=== PATIENT | male | born 1955 | race Caucasian/White ===

== ENCOUNTER 2016-07-08 16:36 | Emergency (ER) | payer SELFPAY ==
[2016-07-08] MEDS ORDERED: NS 500 ML IV ONE (17:18)
--- NOTE | 2016-07-08 17:18 | EDPHY ---
General Narrative: CHIEF COMPLAINT: nausea and shortness of breath HISTORY OF PRESENT ILLNESS: patient reports 3 episodes of nausea and shortness of breath that started last Friday, 9 days ago. First episode was after drinking heavily Friday night 9 days ago. He said he just felt short of breath and nauseated. There were mild symptoms that improved and resolved spontaneously after not drinking the following day. No chest pain at that time. The symptoms returned again yesterday and this morning. No chest pain during these either. There were brief, mild in severity and spontaneously resolved. Symptoms this morning lasted longer than the previous 2, prompting him to come to the emergency department. He has had no fever. No body aches. No headaches. No chills. No vomiting. No abdominal pain. No urinary complaints. No predictable modifying factors or associated complaints. REVIEW OF SYSTEMS: Ten systems reviewed and are negative unless otherwise noted in the HPI PERTINENT MEDICAL HISTORY: Noncontributory EXAMINATION General Appearance: Alert, no distress Head: normocephalic, atraumatic Eyes: Pupils equal and round, no conjunctival pallor or injection ENT, Mouth: Mucous membranes moist. Uvula midline. No erythema or edema. Neck: Normal inspection, supple, non-tender . No nuchal rigidity or meningismus. Respiratory: Lungs are clear to auscultation . No wheezing, rhonchi or crackles. No consolidation or diminishment. Cardiovascular: Regular rate and rhythm . No murmur. Pulses intact symmetrically the radial DP 2+. Gastrointestinal: Abdomen is soft and nontender . No tympany. No rigidity. Nonacute abdomen. Back: non-tender, no bony abnormalities Neurological: A&O, nonfocal, normal gait . No tremor. Strength is symmetric in all limbs. Skin: Warm and dry, no rash Extremities: Nontender, no pedal edema Psychiatric: Mood and affect normal DIFFERENTIAL DIAGNOSES: Including but not limited to alcohol intoxication, alcohol abuse, pancreatitis nausea and vomiting, dehydration, atrial fibrillation, alcohol intolerance MDM: 5:15 p.m. several bouts of nausea and shortness of breath. These have happened every time he drinks over the past 10 days. No chest pain of any kind. No shortness of breath at this time. Vital signs are within normal limits. Of her laboratory studies an EKG. This appears to be benign and directly related to the alcohol. His last intake was last night. He denies alcohol this time or alcohol 6:45 p.m. laboratory studies are all within normal limits. He has no symptoms at this time. He is not tremulous. He is not febrile. He has no signs delirium tremens. I do feel this is likely related to his alcohol use. I feel that he may not be conveyed to me how much he actually drinks. We discussed short trial of Librium of the next few days to see if this helps his symptoms. I discussed the need to completely refrain from alcohol while trying this. Voices understanding of this. I do feel he is capable of attempting this. He is to follow up with the previous position he saw or [facility]. Return to ER for worsening symptoms or any chest pain of any kind. He is comfortable this plan. I have answered all of his questions. He is discharged home in stable condition. SUPERVISION: This patient was independently evaluated without the aide of supervising physician. - History Smoking Status: Never smoked - Objective Vital Signs: Initial Vital Signs Temperature (C) 98.2 F 07/08/16 16:39 Heart Rate 81 07/08/16 16:39 Respiratory Rate 16 07/08/16 16:39 Blood Pressure 136/76 H 07/08/16 16:39 O2 Sat (%) 94 07/08/16 16:39 O2 Delivery Mode Room Air Allergies/Adverse Reactions: penicillin V potassium [From Pen-Vee K] Allergy (Intermediate, Verified 16:38) Rash Penicillins Allergy (Verified 07/08/16 16:38) Home Medications: Medication Instructions Recorded Miscellaneous Medical Supply [NO 01/12/12 HOME MEDS] chlordiazePOXIDE 25MG PREPK#6 1 btl TAKEHOME AD PRN #1 btl 07/08/16 [Librium 25 mg Prepack#6] Laboratory Results: Laboratory Results 07/08/16 17:49 07/08/16 17:49 07/08/16 07/08/16 07/08/16 17:49 17:49 17:49 WBC RBC Hgb Hct MCV MCH MCHC RDW Plt Count MPV Neut % (Auto) Lymph % (Auto) [place] % (Auto) Eos % (Auto) Baso % (Auto) Nucleat RBC Rel Count Absolute Neuts (auto) Absolute Lymphs (auto) Absolute Monos (auto) Absolute Eos (auto) Absolute Basos (auto) Absolute Nucleated RBC Immature Gran % Immature Gran # PT 13.3 SEC SEC (12.0-15.0) INR 1.02 (0.83-1.16) APTT 25.3 SEC SEC (23.0-38.0) Sodium 143 mEq/L mEq/L (134-144) Potassium 4.0 mEq/L mEq/L (3.5-5.2) Chloride 105 mEq/L mEq/L (97-110) Carbon Dioxide 25 mEq/l mEq/l (22-31) Anion Gap 13 mEq/L mEq/L (8-16) BUN 17 mg/dL mg/dL (7-23) Creatinine 0.9 mg/dL mg/dL (0.7-1.3) Estimated GFR > 60 Glucose 101 mg/dL H mg/dL (70-100) Calcium 9.7 mg/dL mg/dL (8.5-10.4) Total Bilirubin 0.6 mg/dL mg/dL (0.1-1.4) Conjugated Bilirubin 0.2 mg/dL mg/dL (0.0-0.5) Unconjugated Bilirubin 0.4 mg/dL mg/dL (0.0-1.1) AST 40 IU/L IU/L (17-59) ALT 51 IU/L IU/L (21-72) Alkaline Phosphatase 92 IU/L IU/L (38-126) Troponin I < 0.012 ng/mL ng/mL (0-0.034) NT-Pro-B Natriuret Pep 47 pg/mL pg/mL (0-125) Total Protein 7.5 g/dL g/dL (6.3-8.2) Albumin 4.7 g/dL g/dL (3.5-5.0) Lipase 293.0 IU/L IU/L (23-300) Urine Opiates Screen NEGATIVE (NEGATIVE) Urine Barbiturates NEGATIVE (NEGATIVE) Ur Phencyclidine Scrn NEGATIVE (NEGATIVE) Ur Amphetamine Screen NEGATIVE (NEGATIVE) U Benzodiazepines Scrn NEGATIVE (NEGATIVE) Urine Cocaine Screen NEGATIVE (NEGATIVE) U Marijuana (THC) Screen NEGATIVE (NEGATIVE) 07/08/16 17:49 WBC 6.19 10^3/uL 10^3/uL (3.80-9.50) RBC 5.10 10^6/uL 10^6/uL (4.40-6.38) Hgb 15.9 g/dL g/dL (13.7-17.5) Hct 46.3 % % (40.0-51.0) MCV 90.8 fL fL (81.5-99.8) MCH 31.2 pg pg (27.9-34.1) MCHC 34.3 g/dL g/dL (32.4-36.7) RDW 13.2 % % (11.5-15.2) Plt Count 239 10^3/uL 10^3/uL (150-400) MPV 9.6 fL fL (8.7-11.7) Neut % (Auto) 68.4 % % (39.3-74.2) Lymph % (Auto) 17.8 % % (15.0-45.0) [place] % (Auto) 9.9 % % (4.5-13.0) Eos % (Auto) 2.3 % % (0.6-7.6) Baso % (Auto) 0.8 % % (0.3-1.7) Nucleat RBC Rel Count 0.0 % % (0.0-0.2) Absolute Neuts (auto) 4.24 10^3/uL 10^3/uL (1.70-6.50) Absolute Lymphs (auto) 1.10 10^3/uL 10^3/uL (1.00-3.00) Absolute Monos (auto) 0.61 10^3/uL 10^3/uL (0.30-0.80) Absolute Eos (auto) 0.14 10^3/uL 10^3/uL (0.03-0.40) Absolute Basos (auto) 0.05 10^3/uL 10^3/uL (0.02-0.10) Absolute Nucleated RBC 0.00 10^3/uL 10^3/uL (0-0.01) Immature Gran % 0.8 % % (0.0-1.1) Immature Gran # 0.05 10^3/uL 10^3/uL (0.00-0.10) PT INR APTT Sodium Potassium Chloride Carbon Dioxide Anion Gap BUN Creatinine Estimated GFR Glucose Calcium Total Bilirubin Conjugated Bilirubin Unconjugated Bilirubin AST ALT Alkaline Phosphatase Troponin I NT-Pro-B Natriuret Pep Total Protein Albumin Lipase Urine Opiates Screen Urine Barbiturates Ur Phencyclidine Scrn Ur Amphetamine Screen U Benzodiazepines Scrn Urine Cocaine Screen U Marijuana (THC) Screen Medications Given: Discontinued Medications Sodium Chloride (Ns) 500 mls @ 0 mls/hr IV ONCE ONE PRN Reason: As Directed Stop: 07/08/16 17:19 Last Admin: 07/08/16 18:06 Dose: 500 mls Departure - Departure Disposition: Home, Routine, Self-Care Clinical Impression: Nausea, Shortness of breath, Alcohol use, Anxiety Condition: Good Instructions: At-Risk Alcohol Use (ED), Chlordiazepoxide (By mouth) Referrals: NONE *PRIMARY CARE P,. [Primary Care Provider] - As per Instructions [facility],. [Clinic] - As per Instructions Lamonte Altman MD [Medical Doctor] - As per Instructions Prescriptions: chlordiazePOXIDE 25MG PREPK#6 [Librium 25 mg Prepack#6] 1 btl TAKEHOME AD PRN # 1 btl PRN Reason: Anxiety
--- NOTE | 2016-07-08 17:49 | CPEKG ---
Heart Rate: 74 RR Interval: 811 P-R Interval: 152 QRSD Interval: 106 QT Interval: 432 QTC Interval: 480 P [place]: 71 QRS [place]: 45 T Wave [place]: 62 EKG Severity - BORDERLINE ECG - EKG Impression: SINUS RHYTHM EKG Impression: BORDERLINE PROLONGED QT INTERVAL Electronically Signed By: Karthikeyan Vyas 08-Jul-2016 18:01:06
[2016-07-08 18:03] LABS: % IMMATURE GRANULYOCYTES 0.8 % (0.0-1.1); ABSOLUTE IMMATURE GRANULOCYTES 0.05 10^3/uL (0.00-0.10); ADD DIFF? NO; ADD MORPH? NO; ADD SCAN? NO; ATYPICAL LYMPHOCYTE FLAG 10 (0-99); FRAGMENT RBC FLAG 0 (0-99); HEMATOCRIT 46.3 % (40.0-51.0); HEMOGLOBIN 15.9 g/dL (13.7-17.5); LEFT SHIFT FLG 0 (0-99); LIPEMIA HEMOLYSIS FLAG 90 (0-99); MEAN CELL HEMOGLOBIN 31.2 pg (27.9-34.1); MEAN CELL HEMOGLOBIN CONCENTR. 34.3 g/dL (32.4-36.7); MEAN CELL VOLUME 90.8 fL (81.5-99.8); MEAN PLATELET VOLUME 9.6 fL (8.7-11.7); PLATELET CLUMPS FLAG 0 (0-99); PLATELET COUNT 239 10^3/uL (150-400); RED CELL DISTRIBUTION WIDTH 13.2 % (11.5-15.2)
[2016-07-08 18:10] LABS: INR 1.02 (0.83-1.16); PROTIME(PATIENT) 13.3 SEC (12.0-15.0)
[2016-07-08 18:11] LABS: ALANINE AMINOTRANSFERASE 51 IU/L (21-72); ALBUMIN 4.7 g/dL (3.5-5.0); ALKALINE PHOSPHATASE 92 IU/L (38-126); ANION GAP 13 mEq/L (8-16); APTT 25.3 SEC (23.0-38.0); ASPARTATE AMINOTRANSFERASE 40 IU/L (17-59); BILIRUBIN,TOTAL 0.6 mg/dL (0.1-1.4); BILIRUBIN-CONJUGATED 0.2 mg/dL (0.0-0.5); BILIRUBIN-UNCONJUGATED 0.4 mg/dL (0.0-1.1); CALCIUM 9.7 mg/dL (8.5-10.4); CARBON DIOXIDE 25 mEq/l (22-31); CHLORIDE 105 mEq/L (97-110); CREATININE 0.9 mg/dL (0.7-1.3); GLOMERULAR FILTRATION RATE > 60; GLUCOSE 101 mg/dL (70-100); SODIUM 143 mEq/L (134-144); TOTAL PROTEIN 7.5 g/dL (6.3-8.2)
[2016-07-08 18:23] LABS: TROPONIN I < 0.012 ng/mL (0-0.034)
[2016-07-08 18:27] VITALS: RESP 18; O2SAT 98
[2016-07-08] MEDS ORDERED: CHLORDIAZEPOXIDE 25MG PREPK#6 BTL TAKEHOME ONE (18:53)
[2016-07-08 19:04] VITALS: BP 154/91; PULSE 67; TEMP 97.2
== END 2016-07-08 19:02 | disposition home or self-care (01) ==
DX: F41.9 Anxiety disorder, unspecified (principal); F10.99 Alcohol use, unspecified with unspecified alcohol-induced disorder; R11.0 Nausea
CPT/HCPCS: 80305